=== PATIENT | female | born 1945 | race Caucasian/White ===

== ENCOUNTER 2024-12-12 10:31 | Outpatient (AMB) | payer OTHER, SELFPAY ==
--- NOTE | 2024-12-12 10:37 | A.OFFPC_ITS ---
Vital Signs 12/12/24 10:39 Height 5 ft 2.6 in Weight 161 lb 4 oz BMI 28.9 BP 134/86 Blood Pressure Location Lt brachial Position Sitting Respiration 14 Pulse 101 H Pulse Source Pulse Oximeter Temp 98.1 F Temp Source Oral Pulse Oximetry (%) 97 Oxygen Delivery Method Room Air Intake Visit Reasons: Continuity of care Intake Note: New patient visit Mold Maker Plastic Molds Required: No Allergies animal dander Allergy (Unknown, Verified 12/09/24 15:42) Unknown grass pollen Allergy (Unknown, Verified 12/09/24 15:42) Unknown house dust Allergy (Unknown, Verified 12/09/24 15:42) Unknown mold Allergy (Unknown, Verified 12/09/24 15:42) Unknown ragweed pollen Allergy (Unknown, Verified 12/09/24 15:42) Unknown zolpidem (From Ambien) Allergy (Unknown, Verified 12/09/24 15:42) Unknown Medication List - Last Reconciled 12/12/24 by Ricarda Zeng PA-C atorvastatin (Lipitor) 40 mg PO DAILY cetirizine 5 mg PO DAILY PRN cholecalciferol (vitamin D3) (Vitamin D3) 10 mcg PO DAILY omeprazole 40 mg PO DAILY polyethylene glycol 3350 (Miralax) 17 grams PO DAILY propylene glycol (Systane Balance) ophthalmic (eye) Tobacco use date assessed: 12/12/24 Fall risk assessment: No Falls in past year Last assessed Fall Risk: 12/12/24 Dental Screening Dental Screen Date: 12/12/24 Did you have a dental visit in the last 12 months?: Yes Did you have a dental problem in the last 6 months where you did not have access to dental care?: No Was dental information given to patient?: Patient has dentist HPI Continuity of care HPI Details Patient is a 79-year-old female who presents today to [facility]. She is transferring from [facility]. She has a significant past medical history of allergic rhinitis, chronic sinusitis, GERD, fatty liver, hyperlipidemia, prediabetes, kidney stones, osteopenia. CV: Used to be on hydrochlorothiazide and chlorthalidone for stone prevention however recent study showed no proof of the decrease stone burden. Cholesterol is managed with atorvastatin. No chest pain or shortness on breath. Endo: Has a history of prediabetes. Her last A1c was 5.9. Cholesterol is controlled with atorvastatin 40 mg. Has a history of elevated alk-phos but unclear etiology. Bone scan negative, no evidence of hyperparathyroidism or vitamin-D deficiency. Urine calcium unremarkable. Has a history of osteopenia. Due for a bone density in 2025 GI: She is on omeprazole 40 mg daily for GERD. She was last scoped 5 years ago. Scheduled for a double endoscopy in May 2025. She follows with Dr. Delacruz. Urology: has a hx of renal stones. She used to see [facility]. [facility] Bone density: Osteopenia- due in 2025 Privacy Attorney: s/p total hysterectomy Colonoscopy: scheduled with Dr. Delacruz in 06/19. Fam hx: sister has protein c disorder, [facility] Medical History (Updated 12/12/24 @ 11:05 by Ricarda Zeng PA-C) H/O mammogram Surgical History (Updated 12/09/24 @ 15:39 by Jodi Brown CMA) History of cataract surgery Family History (Updated 12/09/24 @ 15:40 by Jodi Brown CMA) Paternal Grandmother No problems noted. Maternal Grandfather Cancer Social History Housing: House Patient Tobacco Use Status: Never used Tobacco e-Cigarette/Vaping Use: Never Used Second Hand Smoke Exposure: No service: No Current occupational status: retired Cognitive needs: No Hearing needs: No Vision needs: No Questionnaire PHQ-9 Over the last 2 weeks, how often have you been bothered by any of the following problems? 1. Little interest or pleasure in doing things: not at all 2. Feeling down, depressed, or hopeless: not at all 3. Trouble falling or staying asleep, or sleeping too much: several days 4. Feeling tired or having little energy: not at all 5. Poor appetite or overeating: not at all 6. Feeling bad about yourself - or that you are a failure or have let yourself or your family down: not at all 7. Trouble concentrating on things, such as reading the newspaper or watching television: not at all 8. Moving or speaking so slowly that other people could have noticed. Or the opposite - being so fidgety or restless that you have been moving around a lot more than usual: not at all 9. Thoughts that you would be better off or of hurting yourself in some way: not at all Total score: 1 Source: Developed by Drs. Lester Inman, Ayesha Shepherd, Farrukh Medina and colleagues, with an educational lashawn from [employer]. Thrive Questionnaire I am a: Patient What is your living situation today?: I have a steady place to live Within the past 12 months, did the food you bought not last and you didn't have the money to get more?: Never true Within the past 12 months, did you worry whether your food would run out before you got money to buy more?: Never true Do you have trouble paying for medicines?: No Do you have trouble getting transportation to medical appointments?: No Do you have trouble paying your heating and electricity bill?: No Do you have trouble taking care of your child, family member or friend?: No Do you have trouble with day-to-day activities such as bathing, preparing meals, shopping, managing finances, etc.?: No Are you currently unemployed and looking for a job?: No Are you interested in more education?: No Please select the resources that you would like help with: None Currently or been in a relationship where the following occur: No concerns reported THRIVE Score: 0 AUDIT C Alcohol Use Questionnaire (AUDIT-C) 1. How often do you have a drink containing alcohol?: Never 3. How often do you have six or more drinks on one occasion?: Never Total Score: 0 CHELSI-7 AMB Questionnaire CHELSI-7 Feeling nervous, anxious, or on edge: 0 = Not at all Not being able to stop or control worryin = Not at all Worrying too much about different things: 0 = Not at all Trouble relaxin = Not at all Being so restless that it is hard to sit still: 0 = Not at all Becoming easily annoyed or irritable: 0 = Not at all Feeling afraid as if something awful might happen: 0 = Not at all Total CHELSI-7 score (0-4 normal; 5-9 mild; 10-14 moderate; 15-21 severe): 0 Source: Developed by Ayesha Oneal Kurt Kroenke and colleagues, with an educational lashawn from [employer]. Physical exam (Primary Care) Vital Signs: Last Vital Signs Temp 98.1 F 12/12/24 10:39 Pulse 101 H 12/12/24 10:39 Resp 14 12/12/24 10:39 BP 134/86 12/12/24 10:39 Pulse Ox 97 12/12/24 10:39 Oxygen Delivery Method Room Air 12/12/24 10:39 BMI result Body Mass Index 28.9 Tobacco/Smoking Status: Tobacco use Status Tobacco use date assessed 12/12/24 12/12/24 10:42 Patient Tobacco Use Status Never used Tobacco 12/12/24 10:42 e-Cigarette/Vaping Use Never Used 12/12/24 10:42 PHQ-9: PHQ-9 Score PHQ-9: Total score 1 12/12/24 10:42 Currently or been in a relationship where the following occur: No concerns reported Const Orientation/consciousness: patient oriented x3 HENMT Ears: hearing grossly normal bilaterally Neck Thyroid: Thyroid normal Lymphatic: no lymphadenopathy noted Resp Auscultation: clear to auscultation bilaterally Cardio Rate: regular rate Rhythm: regular rhythm Heart sounds: S1 normal heart sound present and S2 normal heart sound present GI Inspection: Yes normal to inspection Palpation (GI): Soft to palpation and Other GI palpation findings present (nontender, no cva tenderness) Auscultation: normoactive bowel sounds Rectal Exam - Female: deferred Skin General skin exam: no rashes or lesions noted Neuro General: patient oriented x3, gait normal and no focal motor deficits Coding Level of Care Code New Pt Level 5 (05794) Complex EM visit Add On G2211 Diagnoses Dyslipidemia E78.5 Renal stones N20.0 Prediabetes R73.03 GERD (gastroesophageal reflux disease) K21.9 Osteopenia M85.80 Elevated alkaline phosphatase level R74.8 Fatty liver K76.0 Assessment & Plan Assessment & Plan (1) Dyslipidemia: Code(s): E78.5 - Hyperlipidemia, unspecified Category: Medical Plan: continue atorvastatin lipids and lfts ordered (2) Renal stones: Code(s): N20.0 - Calculus of kidney Category: Medical Plan: does not wish to follow with urology anymore states that she will monitor at home her own sx (3) Prediabetes: Code(s): R73.03 - Prediabetes Category: Medical Plan: a1c ordered (4) GERD (gastroesophageal reflux disease): Code(s): K21.9 - Gastro-esophageal reflux disease without esophagitis Category: Medical Plan: continue omeprazole 40 mg daily has GI consult (5) Osteopenia: Code(s): M85.80 - Other specified disorders of bone density and structure, unspecified site Category: Medical Plan: due in 2025, ordered for her to get done at [place] (6) Elevated alkaline phosphatase level: Code(s): R74.8 - Abnormal levels of other serum enzymes Category: Medical Plan: will monitor. last one was 140 (7) Fatty liver: Code(s): K76.0 - Fatty (change of) liver, not elsewhere classified Category: Medical Plan: discussed diet changes and reducing her carbohydrate and sugar intake. Plan 75 minutes today is spent in [id number] time reviewing her previous medical chart from [facility], reviewing a list of her questions, medications and discussing labs. Mammogram and bone density ordered and printed for her. I also faxed to [facility] where she prefers to get this done. Orders: Orders MM screening mammo BI Today Z12.31 - Encounter for screening mammogram for malignant neoplasm of breast Comprehensive [place]. Panel Fast Today E78.5 - Hyperlipidemia, unspecified, K21.9 - Gastro-esophageal reflux disease without esophagitis, N20.0 - Calculus of kidney, R73.03 - Prediabetes, R74.8 - Abnormal levels of other serum enzymes Complete Blood Count Auto Diff Today E78.5 - Hyperlipidemia, unspecified, K21.9 - Gastro-esophageal reflux disease without esophagitis, N20.0 - Calculus of kidney, R73.03 - Prediabetes, R74.8 - Abnormal levels of other serum enzymes TSH reflex Free T4 Today E78.5 - Hyperlipidemia, unspecified, K21.9 - Gastro- esophageal reflux disease without esophagitis, N20.0 - Calculus of kidney, R73.03 - Prediabetes, R74.8 - Abnormal levels of other serum enzymes XR DEXA axial skeleton Today M85.80 - Other specified disorders of bone density and structure, unspecified site Lipid Panel Today E78.5 - Hyperlipidemia, unspecified, K21.9 - Gastro- esophageal reflux disease without esophagitis, N20.0 - Calculus of kidney, R73.03 - Prediabetes, R74.8 - Abnormal levels of other serum enzymes Hemoglobin A1c Today E78.5 - Hyperlipidemia, unspecified, K21.9 - Gastro- esophageal reflux disease without esophagitis, N20.0 - Calculus of kidney, R73.01 - Impaired fasting glucose, R73.03 - Prediabetes, R74.8 - Abnormal levels of other serum enzymes Microalbumin, Random (w Creat) Today E78.5 - Hyperlipidemia, unspecified, K21.9 - Gastro-esophageal reflux disease without esophagitis, N20.0 - Calculus of kidney, R73.03 - Prediabetes, R74.8 - Abnormal levels of other serum enzymes
[2024-12-12 10:39] VITALS: BP 134/86; PULSE 101; RESP 14; TEMP 36.7; O2SAT 97; BMI 28.9
== END 2024-12-12 11:35 | disposition home or self-care (01) ==
LOC: HO.HMCFM 10:32
PROVIDERS: PCP Physician Assistant; Visit Provider Physician Assistant
DX: E78.5 Hyperlipidemia, unspecified (principal); N20.0 Calculus of kidney; R73.03 Prediabetes; K21.9 Gastro-esophageal reflux disease without esophagitis; M85.80 Other specified disorders of bone density and structure, unspecified site; R74.8 Abnormal levels of other serum enzymes; K76.0 Fatty (change of) liver, not elsewhere classified

== ENCOUNTER → 2024-12-12 10:31 | Outpatient (BNVA) | payer MEDICARE, SELFPAY | PROVIDERS: PCP Physician Assistant; Visit Provider Physician Assistant | DX: Z13.89 Encounter for screening for other disorder (principal) ==

== ENCOUNTER 2025-02-26 07:43 | Outpatient (REF) | payer MEDICARE, SELFPAY ==
--- OUTSIDE RECORDS SUMMARY | 2025-02-26 07:50 | XMS_ITS | Encounter Summary ---
Author Organization [facility] Address [address] [place] [phone] Phone Care Team Providers Care Supervisor Road Administrator Name Role Phone Malcolm Rodríguez MD Primary Care Provider + Reason for Referral * MRI/CAT Scan - Closed Specialty Diagnoses / Procedures Referred By Lorena t Referred To Contact Radiology Diagnoses Abnormal levels of other serum enzymes Procedures NM Bone Scan Malcolm Rodríguez MD Phone: tel: fax: Referral ID Status Reason Start Date Expiration Date Visits Re quested Visits Authorized [id number] Closed 03/20/2024 03/20/2025 2 2 Encounter Details Date Type Department Care Team (Latest Contact Info) Description 03/20/2024 Transcribe Orders Virtual Department [address] [place] [address] Malcolm Rodríguez MD [address] [place] [phone] Abnormal levels of other serum enzymes (Primary Dx) Social History Tobacco Use Types Packs/Day Years Used Date Smoking Tobacco: Never Assessed Education Answer Date Recorded Are you interested in more education? Not on shelly e 01/10/2024 Are you concerned about learning? Not on file 01/10/2024 No 01/10/2024 No 01/10/2024 Digital Access Answer Date Recorded No 01/10/2024 No 01/10/2024 Reliable internet access at home? Not on file 01/10/2024 Device with a working camera? Not on file Comments Unknown Sex and Gender Information Value Date Recorded Sex Assigned at Not on file Legal Sex Female 10:46 AM EDT Gender Identity Not on file Sexual Orientation Not on file documented as of this encounter Plan of Treatment Not on file documented as of this encounter Results * NM BONE SCAN WHOLE BODY (04/23/2024 2:44 PM EDT) Anatomical Region Laterality Modality Shoulder Right, Shoulder Lef t, Arm Left, Arm Right, Elbow Left, Elbow Right, Forearm Left, Forearm Right, Wrist Right, Wrist Left, Hand Left, Hand Right, Hip Left, Hip Right, Hip Bilateral, Thigh Left, Thigh Right, Knee Left, Knee Right, Knee Bilateral, Leg Left, Leg Right, Ankle Left, Ankle Right, Foot Left, Foot Right, Pelvis Nucle ar Medicine 04/23/2024 2:46 PM EDT Impressions 04/25/2024 9:41 AM EDT No specific scintigraphic evidence of osseous metastatic or Paget's disease. Scattered foci of periarticular and spine uptake, most commonly degenerative. ATTESTATION: I, Dr. Carlos Garsia as teaching physician, have reviewed the images for this case and if necessary edited the report originally created by Sandor Meek. Narrative 04/25/2024 9:41 AM EDT EXAM: NM BONE SCAN WHOLE BODY Radionuclide bone scan: TECHNIQUE: 20.4 mCi technetium 99m MDP was injected. Scans were performed more than two hours later. Whole body images were acquired and appropriate spot views were obtained based upon review of the whole body images. COMPARISON: No prior bone scan available FINDINGS: There is no specific scintigraphic evidence of osseous metastatic or Paget's disease. There is nonspecific foci of uptake in the mid lumbar and mid thoracic spine which are at locations where degenerative change is common. Periarticular foci of uptake at the shoulders, wrists/hands, right sternoclavicular joint, sternomanubrial joint, hips, knees, and ankles/feet are in a distribution most typical for degenerative change. Renal uptake is within the expected range. Procedure Note Carlos Garsia MD - 04/25/2024 EXAM: NM BONE SCAN WHOLE BODY Radionuclide bone scan: TECHNIQUE: 20.4 mCi technetium 99m MDP was injected. Scans were performed more thantwo hours later. Whole body images were acquired and appropriate spotviews were obtained based upon review of the whole body images. COMPARISON: No prior bone scan available FINDINGS: There is no specific scintigraphic evidence of osseous metastatic orPaget's disease. There is nonspecific foci of uptake in the mid lumbar and mid thoracicspine which are at locations where degenerative change is common. Periarticular foci of uptake at the shoulders, wrists/hands, rightsternoclavicular joint, sternomanubrial joint, hips, knees, andankles/feet are in a distribution most typical for degenerative change. Renal uptake is within the expected range. IMPRESSION: No specific scintigraphic evidence of osseous metastatic or Paget'sdisease. Scattered foci of periarticular and spine uptake, most commonlydegenerative. ATTESTATION: I, Dr. Carlos Garsia as teaching physician, have reviewed theimages for this case and if necessary edited the report originally createdby Sandor Meek. Malcolm Rodríguez MD [facility] B[facility] Final R esult documented in this encounter Visit Diagnoses Diagnosis Abnormal levels of other serum enzymes- Primary Abnormal levels of other serum enzymes documented in this encounter Care Teams Supervisor Road Administrator Relationship Specialty Start Date End Date Malcolm Rodríguez MD [address] [place] [id number] PCP - General Internal Medicine 01/10/24 documented as of this encounter Additional Source Comments The information contained in this document represents components of the legal health record. It is not the complete legal health record.[facility]
--- OUTSIDE RECORDS SUMMARY | 2025-02-26 07:50 | XMS_ITS | Clinical Summary ---
Author Organization [facility] Address [address] [place], [place] [id number] Phone Care Team Providers Care Progress Clerk Name Role Phone Malcolm Rodríguez MD Primary Care Provider + Family History Medical History Relation Comments Breast cancer Sister Relation Status Comments Sister Social History Tobacco Use Types Packs/Day Years [...] a working camera? Not on file Comments No Sex and Gender Information Value Date Recorded Sex Assigned at Not on file Legal Sex Female 10:46 AM EDT Gender Identity Not on file Sexual Orientation Not on file Plan of Treatment Not on file Medical Devices Not on file Insurance [employer] Care Teams Progress Clerk Relationship Specialty Start Date End Date Malcolm Rodríguez MD [address] [place] [phone] PCP - General Internal Medicine 01/10/24 Additional Source Comments The information contained in this document represents components of the legal health record. It is not the complete legal health record.[facility]
--- OUTSIDE RECORDS SUMMARY | 2025-02-26 07:50 | XMS_ITS | Encounter Summary ---
Author Organization [facility] Address [address] [place] [phone] Phone Care Team Providers Care Web Administrator Name Role Phone Malcolm Rodríguez MD Primary Care Provider + Encounter Details Date Type Department Care Team (Late st Contact Info) Description 01/10/2024 Procedure Pass [facility], [address] [phone] Social History Tobacco Use Types Packs/Day Years [...] on file documented as of this encounter Visit Diagnoses Not on filedocumented in this encounter Care Teams Web Administrator Relationship Specialty Start Date End Date Malcolm Rodríguez MD [address] [place] [phone] PCP - General Internal Medicine 01/10/24 documented as of this encounter Additional Source Comments The information contained in this document represents components of the legal health record. It is not the complete legal health record.[facility]
--- OUTSIDE RECORDS SUMMARY | 2025-02-26 07:51 | XMS_ITS | Encounter Summary ---
Author Organization [facility] Address [address] [place] [phone] Phone Care Team Providers Care Substance Abuse Specialist Name Role Phone Malcolm Rodríguez MD Primary Care Provider + Encounter Details Date Type Department Care Team (Late st Contact Info) Description 01/15/2024 Ancillary Orders [facility], X-Ray - [address] [id number] Joan Banks PA [address] [place] [address] Right lower quadrant abdominal pain (Primary Dx) Social History Tobacco Use Types [...] documented as of this encounter Results * XR HIP 2 VW RIGHT PLUS PELVIS (01/15/2024 10:17 AM EDT) Anatomical Region Laterality Modality Hip, Pelvis Computed Radiogr aphy 01/15/2024 1:48 PM EDT Impressions 01/15/2024 1:48 PM EDT Mild hip degenerative changes. Narrative 01/15/2024 1:48 PM EDT XR HIP 2 VW RIGHT PLUS PELVIS Referring clinician's provided indication for this examination in Epic: Pain COMPARISON: None FINDINGS: Mild hip degenerative changes. No acute fracture. Frontal evaluation of the opposite hip demonstrates mild degenerative changes. Degenerative changes of the lower lumbar spine and pubic symphysis. Procedure Note Migdalia Duff MD - 01/15/2024 XR HIP 2 VW RIGHT PLUS PELVIS Referring clinician's provided indication for this examination in Epic:Pain COMPARISON: None FINDINGS: Mild hip degenerative changes. No acute fracture. Frontal evaluation of the opposite hip demonstrates mild degenerativechanges. Degenerative changes of the lower lumbar spine and pubicsymphysis. IMPRESSION: Mild hip degenerative changes. Joan OBREGON IMG XR PELVIS Final Result documented in this encounter Visit Diagnoses Diagnosis Right lower quadrant abdominal pain- Primary Right lower quadrant abdominal pain documented in this encounter Care Teams Substance Abuse Specialist Relationship Specialty Start Date End Date Malcolm Rodríguez MD [address] [place] [phone] PCP - General Internal Medicine 01/10/24 documented as of this encounter Additional Source Comments The information contained in this document represents components of the legal health record. It is not the complete legal health record.[facility]
--- OUTSIDE RECORDS SUMMARY | 2025-02-26 07:51 | XMS_ITS | Encounter Summary ---
Author Organization [facility] Address [address] [place] [phone] Phone Care Team Providers Care Airfreight Operations Agent Name Role Phone Malcolm Rodríguez MD Primary Care Provider + Encounter Details Date Type Department Care Team ([facility] st Contact Info) Description 01/15/2024 Transcribe Orders [facility] [address] [place] [address] System, Provider Not In, [facility] [address] [address] Social History Tobacco Use Types Packs/Day Years [...] on filedocumented in this encounter Care Teams Airfreight Operations Agent Relationship Specialty Start Date End Date Malcolm Rodríguez MD [address] [place] [phone] PCP - General Internal Medicine 01/10/24 documented as of this encounter Additional Source Comments The information contained in this document represents components of the legal health record. It is not the complete legal health record.[facility]
--- OUTSIDE RECORDS SUMMARY | 2025-02-26 07:51 | XMS_ITS | Encounter Summary ---
Author Organization Formerly [facility] Address [address] [place] [phone] Phone Care Team Providers Care House Wirer Helper Name Role Phone Malcolm Rodríguez MD Primary Care Provider + Encounter Details Date Type Department Care Team (Latest Contact Info) Description 01/10/2024 Transcribe Orders Virtual Department [address] [place] [address] Malcolm Rodríguez MD [address] [place] [phone] Breast screening (Primary Dx) Social History Tobacco Use Types [...] documented as of this encounter Results * BI MAMMOGRAM SCREENING WITH TOMOSYNTHESIS WITH CAD (BILATERAL) (04/23/2024 8:55 AM EDT) Anatomical Region Laterality Modality Breast Left, Breast Right, Breast Bilateral Bila teral Mammography 04/24/2024 10:3 5 AM EDT Impressions 04/24/2024 10:43 AM EDT No mammographic evidence of malignancy in either breast. Annual screening mammography is recommended. BI-RADS 2 BENIGN The patient will be notified of the results and recommendations. Narrative 04/24/2024 10:43 AM EDT BI MAMMOGRAM SCREENING WITH TOMOSYNTHESIS WITH CAD (BILATERAL) Additional patient information: Screening. Personal history of bilateral excisional biopsies. COMPARISON: Comparison is made with relevant prior imaging. Breast composition: There are scattered areas of fibroglandular density. FINDINGS: Previous surgical biopsy in both breasts. No abnormal masses, suspicious calcifications, or other significant findings are identified mammographically in either breast. There has been no significant interval change. Procedure Note Sherlyn Guillen MD - 04/24/2024 BI MAMMOGRAM SCREENING WITH TOMOSYNTHESIS WITH CAD (BILATERAL) Additional patient information: Screening. Personal history of bilateralexcisional biopsies. COMPARISON: Comparison is made with relevant prior imaging. Breast composition: There are scattered areas of fibroglandular density. FINDINGS: Previous surgical biopsy in both breasts. No abnormal masses, suspicious calcifications, or other significantfindings are identified mammographically in either breast. There has been no significant interval change. IMPRESSION: No mammographic evidence of malignancy in either breast. Annual screening mammography is recommended. BI-RADS 2 BENIGN The patient will be notified of the results and recommendations. Malcolm Rodríguez MD IMG MG EXAMS Final Re sult documented in this encounter Visit Diagnoses Diagnosis Breast screening- Primary Breast screening, unspecified Breast screening Breast screening, unspecified documented in this encounter Care Teams House Wirer Helper Relationship Specialty Start Date End Date Malcolm Rodríguez MD [address] [place] [phone] PCP - General Internal Medicine 01/10/24 documented as of this encounter Additional Source Comments The information contained in this document represents components of the legal health record. It is not the complete legal health record.Formerly [facility]
[2025-02-26 11:25] LABS: MANUAL DIFF FLAG NO
[2025-02-26 11:37] LABS: Hematocrit 40.9 % (37.0-47.0); Hemoglobin 13.1 g/dl (12.0-16.0); Imm Gran Abs Auto 0.01 X10*3/uL (0.00-0.03); Imm Gran Pct Auto 0.1 % (0.0-0.4); Lymphocytes Absolute Auto 2.6 X10*3/uL (1.2-4.9); Mean Corpuscular HGB Conc 32.0 g/dl (31.0-35.0); Mean Corpuscular Hemoglobin 30.6 pg (27.0-33.0); Mean Corpuscular Volume 95.6 fL (80.0-98.0); NRBC Abs Auto 0.000 X10*3/uL (0.0-0.012); NRBC Pct Auto 0.0 /100WBC (0.0-0.2); Platelet Count 247 X10*3/uL (160-400); Red Blood Count 4.28 X10*6/uL (4.20-5.50); White Blood Count 6.8 X10*3/uL (4.8-10.8)
[2025-02-26 11:48] LABS: Hemoglobin A1C 128.7942 umol/L; Total Hemoglobin (HGBA1C) 3405.7254 umol/L
[2025-02-26 12:14] LABS: Alanine Aminotransferase 20 U/L (0-31); Albumin Level 4.2 g/dL (3.5-5.0); Alkaline Phosphatase 108 U/L (39-117); Anion Gap 10 (12-20); Aspartate Amino Transferase 31 U/L (5-31); Blood Urea Nitrogen 21 mg/dL (9-16); Calcium 9.2 mg/dL (8.4-10.2); Carbon Dioxide 26 mmol/L (22-29); Chloride 108 mmol/L (96-108); Cholesterol 141 mg/dL (<200); Estimated Glomerular Filt Rate > 60; HDL Cholesterol 44 mg/dL (>40); Potassium 3.8 mmol/L (3.3-5.1); Sodium 140 mmol/L (135-145); Total Protein 7.3 g/dL (6.5-8.0); Triglycerides 99 mg/dL (<150)
[2025-02-26 12:25] LABS: Microalbum/Creatinine Ratio Ur 50.0 ug/mg cr (<30)
== END 2025-02-26 07:44 | disposition home or self-care (01) ==
LOC: HO.WFDLDS 07:43
PROVIDERS: Visit Provider Physician Assistant
DX: E78.5 Hyperlipidemia, unspecified (principal); R73.03 Prediabetes; N20.0 Calculus of kidney; K21.9 Gastro-esophageal reflux disease without esophagitis; R74.8 Abnormal levels of other serum enzymes; R73.01 Impaired fasting glucose
CPT/HCPCS: 36415; 82043; 82570; 83036; 85025